=== PATIENT | female | born 1975 | race Caucasian/White ===

== ENCOUNTER 2022-10-05 06:28 | Day surgery (SDC) | payer BC ==
[2022-10-05] MEDS ORDERED: Sodium Chloride 0.9% 1,000 ML IV SCH (07:15)
[2022-10-05] MEDS ORDERED: Midazolam 1 MG/ML 2 ML SDV ONE (07:21)
[2022-10-05] MEDS ORDERED: fentaNYL 50 MCG/ML SDV ONE (07:21)
[2022-10-05] MEDS ORDERED: Propofol 200 MG/20 ML SDV ONE (07:22)
== END 2022-10-05 09:09 | disposition home or self-care (01) ==
LOC: JP.SDS 06:28
PROVIDERS: ATTEND Surgery
DX: Z12.11 Encounter for screening for malignant neoplasm of colon (principal); K21.9 Gastro-esophageal reflux disease without esophagitis; Z88.8 Allergy status to other drugs, medicaments and biological substances
CPT/HCPCS: 45378; J2250; J2704; J3010; J7030